=== PATIENT | male | born 1950 | race Caucasian/White ===

== ENCOUNTER 2020-05-15 20:13 | Emergency (ER) | payer OTHER ==
[~2020-05-15] VITALS: Ht 175.3 cm; Wt 79.4 kg
[2020-05-15 20:18] VITALS: BP 138/91
== END 2020-05-16 01:44 | disposition home or self-care (01) ==
LOC: ER 20:13
DX: K40.90 Unilateral inguinal hernia, without obstruction or gangrene, not specified as recurrent (principal)

== ENCOUNTER 2020-10-23 23:49 | Emergency (ER) | payer OTHER ==
[~2020-10-23] VITALS: Ht 175.3 cm; Wt 74.8 kg
[2020-10-24 01:45] VITALS: BP 140/86
== END 2020-10-24 02:00 | disposition home or self-care (01) ==
LOC: ER 23:49
DX: K40.90 Unilateral inguinal hernia, without obstruction or gangrene, not specified as recurrent (principal)